=== PATIENT | female | born 1970 | race African-American/Black ===

== ENCOUNTER 2017-01-28 17:32 | Emergency (ER) | payer BC ==
[~2017-01-28 17:32] MED LIST: NORCO1 TAB PO; PROAIR HFA INH; XANAX1 MG PO
[2017-01-28 19:20] LABS: CARBOXYHEMOGLOBIN 2.5 % (0-3); HCO3 (ACTUAL BICARBONATE) 29.2 MEQ/L (23-27); HEMOBLOGIN CONTENT 13.4 G/DL (12-16); INSTRUMENT SERIAL # 8087; METHEMOGLOBIN 0.1 % (0-3); OPERATOR ID 33449; PCO2 (CO2 TENSION) 37 MMHG (35-45); PO2 (O2 TENSION) 94 MMHG (79-93); SAMPLE Arterial; pH 7.51 (7.37-7.43)
[2017-01-28 19:21] LABS: ALLENS TEST Pos
[2017-01-28 19:34] LABS: BASOPHILS 0.5 %; BASOPHILS ABSOLUTE 0.02 10/3/uL (0.0-0.16); EOSINOPHILS 1.3 %; EOSINOPHILS ABSOLUTE 0.05 10/3/uL (0.0-0.53); ER CBC TAT 0 Hrs 10 Mins; HEMOGLOBIN 13.2 g/dL (12.0-16.0); LYMPHOCYTES 52.4 %; MEAN CORPUS HGB CONC 34.7 g/dL (32.0-36.0); MEAN CORPUSCULAR HEMOGLOB 32.4 pg (26.0-34.0); MEAN CORPUSCULAR VOLUME 93.4 fL (80-100); MEAN PLATELET VOLUME 8.8 fL (9.2-13.0); MONOCYTES 6.5 %; MONOCYTES ABSOLUTE 0.25 10/3/uL (0.21-1.20); NEUTROPHILS 39.3 %; PLATELET COUNT 236 10/3/uL (150-400); RBC DISTRIBUTION WIDTH 12.7 % (12.0-16.0); RED CELL COUNT 4.07 10/6/uL (4.0-5.6); WHITE BLOOD CELLS 3.8 10/3/uL (4.5-10.5)
[2017-01-28 19:37] LABS: MANUAL DIFF NO %
[2017-01-28 19:40] LABS: PARTIAL THROMBO TIME 25.8 SEC (22.5-37.2); PROTIME (NOT ORD) 13.1 SEC (12.0-14.5)
[2017-01-28 19:42] LABS: D-DIMER QUANTITATIVE 0.39 ug/mLFEU (< 0.50)
[2017-01-28 19:48] LABS: BUN (BLOOD UREA NITROGEN) 7 MG/DL (6-23); CALCIUM, SERUM 9.1 MG/DL (8.5-10.4); CHEST PAIN PROFILE TAT 0 Hrs 24 Mins; CHLORIDE, SERUM 107 MMOL/L (96-112); CO2 (CARBON DIOXIDE) 30 MMOL/L (24-34); CREATININE 0.92 MG/DL (0.55-1.02); GFR AFRICAN AMERICAN 85 ML/MIN (>=60); GFR NON AFRICAN AMERICAN 74 ML/MIN (>=60); GLUCOSE, SERUM 119 MG/DL (60-99); POTASSIUM, SERUM 3.8 MMOL/L (3.5-5.3); SODIUM, SERUM 144 MMOL/L (135-148); TROPONIN I <0.02 NG/ML (<0.05)
== END 2017-01-28 22:37 | disposition home or self-care (01) ==
LOC: ER 17:32
PROVIDERS: Emergency Medicine
DX: J44.1 Chronic obstructive pulmonary disease with (acute) exacerbation (principal); I10 Essential (primary) hypertension; F17.200 Nicotine dependence, unspecified, uncomplicated; Z79.899 Other long term (current) drug therapy
CPT/HCPCS: 36600; 71010; 80048; 82805; 83735; 83880; 84484; 85025; 85379; 85610; 85730; 87040; 93005; 94640; 96374; 99285; A9270-GY; J1956; J2930